=== PATIENT | female | born 1945 | race Caucasian/White ===

== ENCOUNTER 2019-05-04 07:59 | Day surgery (SDC) | payer OTHER ==
[2019-05-04] MEDS ORDERED: Propofol 200 MG/20 ML SDV IV ONE (08:00)
[2019-05-04] MEDS ORDERED: Sodium Chloride 0.9% 10 ML Syringe FLUSH PRN (08:00)
[2019-05-04] MEDS: Lactated Ringers 1,000 ML IV SCH (08:35)
--- NOTE | 2019-05-04 10:03 | PCM.PN ---
- General Info Date of Service: 05/04/19 - Review of Systems Systems Review Comment:: 73 y/o female with history of colon polyps here for colonoscopy. Her last colonoscopy was 3 years ago. She denies any recent blood in her stool and she states bowel pattern has been satisfactory. I have discussed the proposed colonoscopy with the patient. Risks such as but not limited to bleeding and GI injury discussed. She agrees to proceed. Her recent H and P is reviewed and no significant changes are noted. - Patient Data Vitals - Most Recent: Last Vital Signs Temp 98.2 F 05/04/19 08:21 Pulse 55 L 05/04/19 08:21 Resp 15 05/04/19 08:21 BP 131/80 05/04/19 08:21 Pulse Ox 99 05/04/19 08:21 Weight - Most Recent: 166 lb 0.129 oz Med Orders - Current: Current Medications Lactated Ringer's (Ringers, Lactated) 1,000 mls @ 125 mls/hr IV ASDIRECTED TABATHA Last Admin: 05/04/19 08:35 Dose: 125 mls/hr Sodium Chloride (Saline Flush) 10 ml FLUSH ASDIRECTED PRN PRN Reason: Keep Vein Open - Problem List Review Problem List Initiated/Reviewed/Updated: Yes - My Orders Last 24 Hours: My Active Orders 05/03/19 Dinner Nothing Per Oral Diet [DIET] 05/04/19 08:00 Patient Status [ADT] Routine Patient to Empty Bladder [RC] ASDIRECTED Verify Patient Consent Obtain [RC] ASDIRECTED Lactated Ringers [Ringers, Lactated] 1,000 ml IV ASDIRECTED Sodium Chloride 0.9% [Saline Flush] 10 ml FLUSH ASDIRECTED PRN Peripheral IV Insertion Adult [OM.PC] Routine - Assessment Assessment:: History of colon polyps - Plan Plan:: Colonoscopy
--- NOTE | 2019-05-04 10:29 | PCM.OPNOTE ---
- General Post-Op/Procedure Note Date of Surgery/Procedure: 05/04/19 Operative Procedure(s): Colonoscopy Findings: Normal post op colon with anal stenosis Pre Op Diagnosis: Hsitory of colon ca Post-Op Diagnosis: normal colon. anal stenosis Anesthesia Technique: MAC Primary Surgeon: Pancho Morales Pathology: none EBL in mLs: 0 Complications: None Condition: Good
--- NOTE | 2019-05-04 12:48 | OR ---
DATE OF OPERATION: 05/04/2019 SURGEON: Pancho Morales MD PREOPERATIVE DIAGNOSIS: History of colon cancer. POSTOPERATIVE DIAGNOSIS: Normal postop colon and anal stenosis. OPERATION PERFORMED: Colonoscopy. INDICATIONS FOR SURGERY: This 73-year-old female has a history of prior lower colon resection for colon cancer. She comes for surveillance colonoscopy. FINDINGS: No lesions were seen during the patient's colonoscopy. There are postoperative changes noted distally in the area of the rectum, but the anastomosis here was widely patent and no anastomotic lesions or visible abnormalities were seen. The patient does have a moderately tight stenosis of the anal canal, but without mass effect. PROCEDURE IN DETAIL: The patient was taken to the procedure room. She was given intravenous sedation and with her in the left lateral decubitus position, digital rectal exam was performed. This is somewhat limited because of the anal stenosis, but with gentle dilation, the distal portion of the examining finger, was able to be inserted into the rectum. The Olympus colonoscope was inserted into the rectum and examination of the anal canal was carried out. Because of the surgery in this area causing lack of distensibility, retroflexion of the rectum was not able to be performed. The scope was then carefully advanced under direct visualization through the entire length of the colon until the cecum was reached. Cecal acquisition was confirmed by noting the normal internal cecal anatomy including the appendiceal orifice and ileocecal valve. After examining the cecum, the scope was slowly withdrawn sequentially re- examining the colonic segments until the entire colon and rectum had been fully examined. The scope was removed, and the patient was taken from the procedure room in satisfactory condition. ESTIMATED BLOOD LOSS: Zero. COMPLICATIONS: None. PROGNOSIS: Good. /[id number] JONY/ALAN
== END 2019-05-04 11:01 | disposition home or self-care (01) ==
LOC: FB.SDS 07:59
PROVIDERS: ATTEND Surgery
DX: Z12.11 Encounter for screening for malignant neoplasm of colon (principal); K62.4 Stenosis of anus and rectum; I10 Essential (primary) hypertension; E78.5 Hyperlipidemia, unspecified; Z90.49 Acquired absence of other specified parts of digestive tract; Z85.038 Personal history of other malignant neoplasm of large intestine; Z86.010 Personal history of colon polyps; Z79.899 Other long term (current) drug therapy
CPT/HCPCS: J2001; J2704; J7120